=== PATIENT | female | born 1970 | race Caucasian/White ===

== ENCOUNTER 2018-02-11 09:48 | Emergency (ER) | payer OTHER ==
--- NOTE | 2018-02-11 10:08 | EDPHY ---
H & P Stated Complaint: gen abd pain N/V/D since yesterday " i think i have food poisoning" Time Seen by Provider: 02/11/18 10:07 HPI/ROS: HPI: This is a 47-year-old female who presents with Chief Complaint: gen abd pain N/V/D since yesterday " i think i have food poisoning" Location: Generalized abdomen Quality: Cramping pain Duration: Since Saturday, 1 day Signs and Symptoms: no fever, + nausea, no vomiting, no hematemesis, no blood in stool, no abdominal bloating, + diarrhea, no back pain, no urinary symptoms, no vaginal bleeding/discharge, no indigestion, no chest pain, no shortness of breath Timing: Acute, intermittent episodes Severity: [id number] Context: Patient reports that she ate a [employer] cheeseburger Saturday evening , woke up around 2:00 a.m. On Saturday morning with nausea and 2-3 loose stools per day. She complains of a generalized abdominal cramping that is nonradiating in nature. She has a history of cholecystectomy and gastric bypass. Denies any blood in her stool, hematemesis, fever, urinary symptoms. No history of kidney stones. LMP 2-3 weeks ago. Drinking fluids. Has not had any loose stools today. Modifying Factors: None Comment: ROS: A comprehensive 10 system review of systems is otherwise negative aside from elements mentioned in the history of present illness. MEDICAL/SURGICAL/SOCIAL HISTORY: Medical history: Anxiety. Surgical history: Gastric bypass, cholecystectomy Social history: Nonsmoker. Denies drug use. . Family history noncontributory. CONSTITUTIONAL: Well-appearing middle-aged white female, awake and alert, no obvious distress HEENT: Atraumatic and normocephalic, PERRL, EOMI. Nares patent; no rhinorrhea; no nasal mucosal edema. Tympanic membranes clear. Oropharynx clear, no exudate and moist pink mucosa. Airway patent. No lymphadenopathy. No meningismus. Cardiovascular: Normal S1/S2, regular rate, regular rhythm, without murmur rub or gallop. PULMONARY/CHEST: Symmetrical and nontender. Clear to auscultation bilaterally. Good air movement. No accessory muscle usage. ABDOMEN: Soft, nondistended, mild generalized tenderness, no rebound, no guarding, no peritoneal signs, no masses or organomegaly. No CVAT. Hyperactive bowel sounds heard x4 EXTREMITIES: 2/2 pulses, strength 5/5, no deformities, no clubbing, no cyanosis or edema. NEUROLOGICAL: no focal neuro deficits. GCS 15. SKIN: Warm and dry, no erythema. no rash. Good capillary refill. Source: Patient Exam Limitations: No limitations - Personal History LMP (Females 10-55): 22-28 Days Ago - Medical/Surgical History Hx Asthma: No Hx Chronic Respiratory Disease: No Hx Diabetes: No Hx Cardiac Disease: No Hx Renal Disease: No Hx Cirrhosis: No Hx Alcoholism: No Hx HIV/AIDS: No Hx Splenectomy or Spleen Trauma: No Other PMH: denies - Social History Smoking Status: Never smoked Constitutional: Initial Vital Signs Temperature (C) 36.7 C 02/11/18 09:54 Heart Rate 87 02/11/18 09:54 Respiratory Rate 18 02/11/18 09:54 Blood Pressure 113/85 H 02/11/18 09:54 O2 Sat (%) 95 02/11/18 09:54 O2 Delivery Mode Room Air Allergies/Adverse Reactions: Penicillins Allergy (Verified 02/11/18 09:53) Home Medications: Medication Instructions Recorded Linzess 02/11/18 Ondansetron Odt [Zofran Odt 4 mg 4 mg PO Q4 PRN #12 tab 02/11/18 (*)] Trazodone HCl 02/11/18 Medical Decision Making ED Course/Re-evaluation: Vital signs reviewed and stable upon arrival. No systemic signs. IV access and laboratory studies obtained. Urinalysis ordered. Given 1 L normal saline, IV promethazine 12.5 mg, IV Toradol 30 mg, and p.o. Bentyl 20 mg Abdomen is soft and mildly tender. Doubt surgical process. No need to image abdomen. 1155: Labs reviewed. No signs of leukocytosis/platelet dysfunction/ADELFO/ elevated LFTs/electrolyte imbalance/pancreatitis/. + microcytic anemia noted. Urine negative. 1210: Urinalysis shows no signs of infection, no hematuria. 1215: Reassessed patient. Abdomen soft and nontender. Doubt surgical process. Drinking fluids without difficulty. Requesting to be discharged home. Given a prescription for Zofran and advised supportive care. This patient was seen under the supervision of my secondary supervising physician. I evaluated care for this patient independently. Discussed this patient with Dr. Wilhelm. Differential Diagnosis: Abdominal pain including but not limited to appendicitis, cholecystitis, gastritis, gastroenteritis and urinary tract infection. - Data Points Laboratory Results: Laboratory Results 02/11/18 10:30 02/11/18 10:30 02/11/18 02/11/18 02/11/18 11:30 10:30 10:30 WBC 3.70 10^3/uL L 10^3/uL (3.80-9.50) RBC 4.54 10^6/uL 10^6/uL (4.18-5.33) Hgb 11.0 g/dL L g/dL (12.6-16.3) Hct 35.8 % L % (38.0-47.0) MCV 78.9 fL L fL (81.5-99.8) MCH 24.2 pg L pg (27.9-34.1) MCHC 30.7 g/dL L g/dL (32.4-36.7) RDW 18.6 % H % (11.5-15.2) Plt Count 292 10^3/uL 10^3/uL (150-400) MPV 9.8 fL fL (8.7-11.7) Neut % (Auto) 51.9 % % (39.3-74.2) Lymph % (Auto) 38.9 % % (15.0-45.0) Roberts % (Auto) 7.3 % % (4.5-13.0) Eos % (Auto) 1.1 % % (0.6-7.6) Baso % (Auto) 0.5 % % (0.3-1.7) Nucleat RBC Rel Count 0.0 % % (0.0-0.2) Absolute Neuts (auto) 1.92 10^3/uL 10^3/uL (1.70-6.50) Absolute Lymphs (auto) 1.44 10^3/uL 10^3/uL (1.00-3.00) Absolute Monos (auto) 0.27 10^3/uL L 10^3/uL (0.30-0.80) Absolute Eos (auto) 0.04 10^3/uL 10^3/uL (0.03-0.40) Absolute Basos (auto) 0.02 10^3/uL 10^3/uL (0.02-0.10) Absolute Nucleated RBC 0.00 10^3/uL 10^3/uL (0-0.01) Immature Gran % 0.3 % % (0.0-1.1) Immature Gran # 0.01 10^3/uL 10^3/uL (0.00-0.10) Sodium 138 mEq/L mEq/L (135-145) Potassium 4.5 mEq/L mEq/L (3.3-5.0) Chloride 106 mEq/L mEq/L (97-110) Carbon Dioxide 23 mEq/l mEq/l (22-31) Anion Gap 9 mEq/L mEq/L (6-14) BUN 8 mg/dL mg/dL (7-23) Creatinine 0.6 mg/dL mg/dL (0.6-1.0) Estimated GFR > 60 Glucose 98 mg/dL mg/dL (70-100) Calcium 8.8 mg/dL mg/dL (8.5-10.4) Total Bilirubin 0.7 mg/dL mg/dL (0.1-1.4) Conjugated Bilirubin 0.2 mg/dL mg/dL (0.0-0.5) Unconjugated Bilirubin 0.5 mg/dL mg/dL (0.0-1.1) AST 46 IU/L IU/L (14-46) ALT 21 IU/L IU/L (9-52) Alkaline Phosphatase 68 IU/L IU/L (38-126) Total Protein 7.5 g/dL g/dL (6.3-8.2) Albumin 4.1 g/dL g/dL (3.5-5.0) Lipase 149 IU/L IU/L (23-300) Urine Color YELLOW Urine Appearance CLEAR Urine pH 6.0 (5.0-7.5) Ur Specific [place] 1.005 (1.002-1.030) Urine Protein NEGATIVE (NEGATIVE) Urine Ketones NEGATIVE (NEGATIVE) Urine Blood NEGATIVE (NEGATIVE) Urine Nitrate NEGATIVE (NEGATIVE) Urine Bilirubin NEGATIVE (NEGATIVE) Urine Urobilinogen NEGATIVE EU EU (0.2-1.0) Ur Leukocyte Esterase NEGATIVE (NEGATIVE) Urine Glucose NEGATIVE (NEGATIVE) Medications Given: Discontinued Medications Dicyclomine HCl (Bentyl) 20 mg PO EDNOW ONE Stop: 02/11/18 10:12 Last Admin: 02/11/18 10:45 Dose: 20 mg Sodium Chloride (Ns) 1,000 mls @ 0 mls/hr IV EDNOW ONE; Wide Open PRN Reason: Protocol Stop: 02/11/18 10:12 Last Admin: 02/11/18 10:45 Dose: 1,000 mls Ketorolac Tromethamine (Toradol) 30 mg IVP EDNOW ONE Stop: 02/11/18 10:12 Last Admin: 02/11/18 10:32 Dose: 30 mg Promethazine HCl (Phenergan) 12.5 mg IVP EDNOW ONE Stop: 02/11/18 10:12 Last Admin: 02/11/18 10:45 Dose: 12.5 mg Departure - Departure Disposition: Home, Routine, Self-Care Clinical Impression: Gastroenteritis Condition: Good Instructions: Gastroenteritis (ED) Additional Instructions: Consume a minimum of 8-10 glasses of water or electrolyte fluid replacement drinks that include Gatorade, Powerade, Pedialyte. Eat a bland diet for the next 48 hours and then slowly advance as tolerated. Take Zofran 1 tab every 4 hours as needed for nausea, vomiting. Return to the Emergency Room if symptoms do not resolve in the next 48-72 hours , you spike a fever > 102 F, or experience intractable abdominal pain/nausea/ vomiting. Referrals: Kathleen Lamb MD [Primary Care Provider] - As per Instructions Prescriptions: Ondansetron Odt [Zofran Odt 4 mg (*)] 4 mg PO Q4 PRN #12 tab PRN Reason: Nausea/Vomiting, Use 1st
[2018-02-11] MEDS ORDERED: KETOROLAC 30 MG/1 ML SDV IVP ONE (10:11)
[2018-02-11] MEDS ORDERED: PROMETHAZINE HCL 25 MG/ML INJ IVP ONE (10:11)
[2018-02-11] MEDS ORDERED: DICYCLOMINE 10 MG CAP PO ONE (10:11)
[2018-02-11] MEDS ORDERED: NS 1,000 ML IV ONE (10:11)
[2018-02-11 10:45] LABS: PLATELET COUNT 292 10^3/uL (150-400)
[2018-02-11 13:08] VITALS: BP 126/66
== END 2018-02-11 13:07 | disposition home or self-care (01) ==
DX: K52.9 Noninfective gastroenteritis and colitis, unspecified (principal); E86.9 Volume depletion, unspecified; F41.9 Anxiety disorder, unspecified; Z98.84 Bariatric surgery status; Z88.0 Allergy status to penicillin
CPT/HCPCS: 96374; J1885; J2550

== ENCOUNTER → 2018-03-12 | Outpatient (CLI) | payer OTHER | LOC: BMCIMAGING 09:58 | PROVIDERS: ATTEND Family Medicine | DX: R92.8 Other abnormal and inconclusive findings on diagnostic imaging of breast (principal) ==

== ENCOUNTER → 2018-04-03 | Outpatient (CLI) | payer OTHER | LOC: FIMAGING 12:32 | PROVIDERS: ATTEND Internal Medicine Hematology & Oncology | DX: Z13.820 Encounter for screening for osteoporosis (principal); Z78.0 Asymptomatic menopausal state; R29.890 Loss of height ==

== ENCOUNTER 2018-05-05 07:55 | Emergency (ER) | payer OTHER ==
--- NOTE | 2018-05-05 08:07 | EDPHY ---
H & P Time Seen by Provider: 05/05/18 08:06 HPI/ROS: CHIEF COMPLAINT: Left foot pain HISTORY OF PRESENT ILLNESS: Patient had orthopedic office diagnosis of stress fracture in her left heel on March 18. She was wearing a walking boot and then got better for a while but then over the last week is felt worse. Pain is in her heel and not in her ankle or calf or higher. It comes in waves of pain and she was not able to sleep last night. Worse with palpation or weight- bearing. The boot is very uncomfortable. REVIEW OF SYSTEMS: No new trauma, no chest pain or shortness of breath, no skin changes or fever or chills. PAST MEDICAL HISTORY: Negative Social history: Nonsmoker General Appearance: Alert and conversant, cooperative. Normal left knee and ankle. Calf is nontender with compartments are soft. Her heel is tender to palpation but her Achilles is not. Skin over the foot and ankle is normal without redness or lymphangitis or blister or eschar or other abnormality. She also has some tenderness over the distal portion of the arch. Normal motor sensory and dorsalis pedis pulse. Emergency Department course/MDM: Repeat x-ray, crutenriqueta, [place] for pain, custom Ortho Glass well-padded splint. Follow-up with Orthopedics in the office in the next 24-48 hours. 834: X-ray reviewed with Dr. Pardo possible stress fracture in the 4th metatarsal, healed lesion consistent with gout in the distal portion of the great toe metatarsal otherwise normal. Calcaneus is normal. Reviewed with the patient. Procedure: Splint placement. A posterior left short leg Ortho Glass splint was applied. After application of the splint I returned and re-examined the patient. The splint was adequately immobilizing the joint and distal to the splint the patient's circulation and sensation was intact. Patient was informed of the radiology findings including possible great toe metatarsal history of gout, possible stress fracture in the 4th metatarsal. She has follow-up with her orthopedist tomorrow. Smoking Status: Never smoked Constitutional: Initial Vital Signs Temperature (C) 36.3 C 05/05/18 07:59 Heart Rate 74 05/05/18 07:59 Respiratory Rate 17 05/05/18 07:59 Blood Pressure 98/69 L 05/05/18 07:59 O2 Sat (%) 94 05/05/18 07:59 Allergies/Adverse Reactions: Penicillins Allergy (Verified 05/05/18 07:59) Home Medications: Medication Instructions Recorded Linzess 02/11/18 Ondansetron Odt [Zofran Odt 4 mg 4 mg PO Q4 PRN #12 tab 02/11/18 (*)] Trazodone HCl 02/11/18 Hydrocodone/APAP 5/325 [[place] 1 tab PO Q4-6PRN PRN #7 tab 05/05/18 5/325] MDM/Departure - MDM Imaging Results: Imaging Impressions Foot X-Ray 05/05/18 08:14 Impression: 1. Equivocal stress fracture of the fourth metatarsal. Correlation with the site of pain is recommended. 2. Small calcaneal spurs. No radiographic evidence for a calcaneal stress fracture. 3. Gout? 4. If symptoms persist consider noncontrast MRI. Results discussed with Dr. Jm Marie at 8:34 AM. Imaging: Discussed imaging studies w/ integration manager Radiologist Medications Given: Discontinued Medications Hydrocodone Bitart/Acetaminophen ([place] 5/325) 1 tab PO EDNOW ONE Stop: 05/05/18 08:15 Last Admin: 05/05/18 08:18 Dose: 1 tab - Depart Disposition: Home, Routine, Self-Care Clinical Impression: Pain of left heel Condition: Good Instructions: Crutch Instructions (ED) Additional Instructions: Wear splint. Use crutches. Limited weight-bearing. Follow-up with your orthopedist in the office tomorrow as scheduled. Prescriptions: Hydrocodone/APAP 5/325 [[place] 5/325] 1 tab PO Q4-6PRN PRN #7 tab PRN Reason: For Pain Referrals: Kathleen Lamb MD [Primary Care Provider] - As per Instructions Donte Haro MD [Medical Doctor] - As per Instructions
[2018-05-05] MEDS ORDERED: HYDROCODONE/APAP 5/325 TAB PO ONE (08:14)
[2018-05-05 08:44] VITALS: BP 102/78
== END 2018-05-05 09:05 | disposition home or self-care (01) ==
PROC: 2W3RX1Z Immobilization of Left Lower Leg using Splint (ICD-10-PCS; principal; 2018-05-05)
DX: M84.375A Stress fracture, left foot, initial encounter for fracture (principal)

== ENCOUNTER 2018-05-06 10:06 | Emergency (ER) | payer OTHER ==
--- NOTE | 2018-05-06 10:25 | EDPHY ---
H & P Stated Complaint: fall, R knee injury Time Seen by Provider: 05/06/18 10:24 HPI/ROS: HPI: This is a 47-year-old female who presents with Chief Complaint: fall, R knee injury Location: Right knee Quality: Injury Duration: Prior to arrival Signs and Symptoms: No bleeding, no radiation, no numbness, no weakness, no tingling, no incontinence, no decreased range of motion, + swelling, + pain, no fever Timing: Acute Severity: Mild Context: Patient reports that she had a cast placed on her left foot for fracture this morning by Dr. Haro in is office. She was using crutches to help her ambulate into the [facility] office when she slipped on ice and landed directly onto her right anterior knee. She reports that she felt immediate, constant, moderate, nonradiating pain. She was ambulatory at the scene without assistance. She complains of mild swelling and mild decreased range of motion secondary to pain. She also reports that she sustained a scratch to the anterior portion of her knee. Reports tetanus is current. Denies LOC/head injury/neck pain/dizziness/nausea/vomiting/amnesia. Modifying Factors: None Comment: ROS: A comprehensive 10 system review of systems is otherwise negative aside from elements mentioned in the history of present illness. MEDICAL/SURGICAL/SOCIAL HISTORY: Medical history: Left foot fracture Surgical history: Denies Social history: Never smoked. CONSTITUTIONAL: Polite and cooperative middle-aged white female, awake and alert, no obvious distress HEENT: Atraumatic and normocephalic. NECK: supple, no midline tenderness, flexion 45 degrees, extension 45 degrees, right and left lateral flexion 45 degrees. No meningismus. Cardiovascular: Normal S1/S2, regular rate, regular rhythm, without murmur rub or gallop. PULMONARY/CHEST: Symmetrical and nontender. no crepitus. Clear to auscultation bilaterally. Good air movement. No accessory muscle usage. ABDOMEN: Soft, nondistended, nontender, no ecchymosis. PELVIC: no pain with rocking; bilateral hips flexion 125 degrees, extension 30 degrees, with no pain internal rotation and no pain external rotation. BACK: No midline tenderness, no paraspinous spasm, deep tendon reflexes 2/2, no pain with straight leg raise, No foot drop. Achilles reflexes are equal bilaterally. Able to walk on heels and toes without difficulty. EXTREMITIES: 2/2 pulses, strength 5/5, right KNEE: Superficial abrasion noted to anterior portion; Mild effusion, tenderness to palpation over the patella; no medial and lateral joint line tenderness, full extension to 180, flexion to 120. No pain with varus and valgus exam. No pain with anterior drawer or posterior drawer test. Extensor mechanism intact. DIP/PIP/MCP flexion/extension intact with good light touch sensation. no deformities, no clubbing, no cyanosis or edema. NEUROLOGICAL: no focal neuro deficits. GCS 15. Light touch sensation intact. SKIN: Warm and dry, no erythema. no rash. Good capillary refill. Source: Patient Exam Limitations: No limitations - Personal History Current Tetanus/Diphtheria Vaccine: Yes Current Tetanus Diphtheria and Acellular Pertussis (TDAP): Yes - Medical/Surgical History Hx Asthma: No Hx Chronic Respiratory Disease: No Hx Diabetes: No Hx Cardiac Disease: No Hx Renal Disease: No Hx Cirrhosis: No Hx Alcoholism: No Hx HIV/AIDS: No Hx Splenectomy or Spleen Trauma: No Other PMH: denies - Social History Smoking Status: Never smoked Constitutional: Initial Vital Signs Temperature (C) 36.5 C 05/06/18 10:12 Heart Rate 70 05/06/18 10:12 Respiratory Rate 16 05/06/18 10:12 Blood Pressure 118/84 H 05/06/18 10:12 O2 Sat (%) 95 05/06/18 10:12 O2 Delivery Mode Room Air Allergies/Adverse Reactions: Penicillins Allergy (Verified 05/06/18 10:11) Home Medications: Medication Instructions Recorded Linzess 02/11/18 Trazodone HCl 02/11/18 Hydrocodone/APAP 5/325 [[place] 1 tab PO Q4-6PRN PRN #7 tab 05/05/18 5/325] Medical Decision Making - Diagnostics Imaging Results: Imaging Impressions Knee X-Ray 05/06/18 10:25 Impression: Lucency in the patella likely representing projectional artifact or less likely a nondisplaced fracture. Findings discussed with Nasra Jimenez on 05/06/2018 at 11:39. Procedures: Procedure: Splint placement. A right knee immobilizer without patella strap was applied. After application of the splint I returned and re-examined the patient. The splint was adequately immobilizing the joint and distal to the splint the patient's circulation and sensation was intact. ED Course/Re-evaluation: Vital signs reviewed and stable upon arrival. Right knee x-ray my read shows questionable nondisplaced patella fracture with intact extensor mechanism Placed in knee immobilizer, rest, ice with Dr. Haro follow-up No signs of neurovascular compromise/tenting of skin/compartment syndrome/ extremities and joints examined above and below area of concern and are neurovascularly intact. This patient was seen under the supervision of my secondary supervising physician. I evaluated care for this patient with attending. Discussed this patient with Dr. Wilhelm who did not see the patient. Differential Diagnosis: Knee injury while [] including but not limited to fracture, ACL injury, contusion, muscular strain, and meniscus injury. Departure - Departure Disposition: Home, Routine, Self-Care Clinical Impression: Contusion of right knee, initial encounter, Suspected fracture of bone Right patella fracture Qualifiers: Encounter type: initial encounter Fracture type: closed Fracture morphology: unspecified fracture morphology Fracture alignment: nondisplaced Qualified Code( s): S82.001A - Unspecified fracture of right patella, initial encounter for closed fracture Condition: Good Instructions: Knee Sprain (ED), Contusion in Adults (ED), Abrasion (ED) Additional Instructions: Wear the knee immobilizer while out of bed and until seen by Orthopedics. Wash the abrasion daily with mild soap and water; pat dry; apply topical antibiotic ointment and clean sterile dressing daily until healed. Take Tylenol 650 mg every 4 hours and/or Ibuprofen 600 mg every 8 hours with food as needed for pain. Apply ice for 30 minutes at a time; 2-3 times per day for the next 1-2 days. Follow up with Orthopedics in 5-7 days at which time they will evaluate and recommend with you if conservative management versus further imaging is indicated. The x-rays obtained in the emergency department today demonstrate of suspected nondisplaced patella fracture. Referrals: Kathleen Lamb MD [Primary Care Provider] - As per Instructions Donte Haro MD [Medical Doctor] - 5-7 days, call for appt.
[2018-05-06 11:40] VITALS: BP 109/58
== END 2018-05-06 11:40 | disposition home or self-care (01) ==
DX: S83.91XA Sprain of unspecified site of right knee, initial encounter (principal); W00.0XXA Fall on same level due to ice and snow, initial encounter; Y92.480 Sidewalk as the place of occurrence of the external cause
CPT/HCPCS: L1830